=== PATIENT | female | born 1985 | race Caucasian/White ===

== ENCOUNTER 2016-09-11 22:34 | Emergency (ER) | payer OTHER ==
--- NOTE | 2016-09-11 23:53 | DIAGNOSTIC IMAGING REPORT ---
PROCEDURE: CT ABDOMEN/PELVIS W/O CONTRAST INDICATION: FLANK PAIN TECHNIQUE: Axial CT images were obtained through the abdomen and pelvis without IV contrast. Coronal and sagittal reformations were created. COMPARISON: None. FINDINGS: Three tiny nonobstructing intrarenal stones in the upper pole of the left kidney. The largest measures 3 mm. There are two obstructing calculi clumped together in the proximal left ureter causing moderate left hydronephrosis measuring four and 2.5 mm. Mild rosette ureteric inflammation. Clear lung bases. Normal size heart. No hiatal hernia. The unenhanced appearance of the liver, gallbladder, adrenal glands, kidneys, pancreas and spleen is normal. The abdominal aorta is normal in its course and caliber. There are no suspicious calcifications, retroperitoneal adenopathy or masses. The stomach, upper bowel loops, and mesentery appears normal. Intact anterior abdominal wall. No free fluid, or inflammation. The unenhanced appearance of the uterus, ovaries, urinary bladder, pelvic vessels, and pelvic bowel loops is normal. Normal appendix. No suspicious calcifications, free fluid, or mass. Intact osseous structures. IMPRESSION: 1. Two obstructing calculi, both in the proximal left ureter, the larger measuring 4 mm. This results in moderate left hydronephrosis. 2. Three nonobstructing left upper pole intrarenal calculi. 3. Findings called to the emergency room. All CT scans at this facility use dose modulation, iterative reconstruction, and/or weight-based dosing when appropriate to reduce radiation dose to as low as reasonably achievable.
--- NOTE | 2016-09-12 00:23 | ED CLINICAL REPORT ---
Clinical Report - Physicians/Mid Levels [facility] [address] [place] [address] 09/11/2016 22:36 Patient: SID SAAB Time Seen: 22:43; initial patient contact. Arrived- By private vehicle. Historian- patient. HISTORY OF PRESENT ILLNESS Chief Complaint: FLANK PAIN. This started last night and is still present. At its maximum, severity described as moderate. When seen in the E.D., severity described as moderate. Modifying factors. Not worsened by anything. Not relieved by anything. It is described as cramping and it is described as located in the left flank and radiating to the groin. The patient has had nausea. No loss of appetite, vomiting or diarrhea. Similar symptoms previously: Many times. Recent medical care: Not recently seen/assessed. REVIEW OF SYSTEMS No constipation, difficulty with urination, pain with urination or urinary frequency. All systems otherwise negative, except as recorded above. PAST HISTORY Nephrolithiasis. Thyroid Disease. Surgeries: No history of previous surgery. Additional Surgeries: no known surgeries. Medications: BuPROPion HCl ER (XL) Oral. Levothyronin . Levothyroxine Sodium Oral (Tablet 100 mcg) 1/2 tablet. Allergies: No Known Drug Allergy. SOCIAL HISTORY Current every day smoker. History of drug use: marijuana. No alcohol use. ADDITIONAL NOTES The nursing notes have been reviewed with agreement regarding the chief complaint, PMH and patient medications and allergies. PHYSICAL EXAM Vital Signs: 09/11/2016 22:40 BP: 127/61. HR: 90. RR: 20. O2 saturation: 100%. Temp: 98 F. Pain level now: 8/10. Have been reviewed as normal. Appearance: Alert. Oriented X3. No acute distress. Eyes: Eyes normal inspection. ENT: Pharynx normal. CVS: Normal heart rate and rhythm. Heart sounds normal. Respiratory: No respiratory distress. Breath sounds normal. Abdomen: Soft. Mild tenderness in the left side of the abdomen with guarding present. No rebound tenderness. Bowel sounds normal. No organomegaly. No mass. Back: Normal inspection. Moderate CVA tenderness on the left. Skin: Normal skin color. No rash. Extremities: No lower extremity edema. Neuro: Oriented X 3. LABS, X-RAYS, AND EKG Abdominal CT: 1. Two obstructing calculi, both in the proximal left ureter, the larger measuring 4 mm. This results in moderate left hydronephrosis. 2. Three nonobstructing left upper pole intrarenal calculi. Study type: renal stone evaluation. Abdominal CT performed without contrast. Prior studies were not available for comparison. Interpretation time: 00:22. Laboratory Tests: UA-Culture if indicated: (RICHARD: 09/11/2016 22:40) ( [facility] [place] 23:19) Final results Test Result Flag Units (Reference) URINE COLOR YELLOW URINE APPEARANCE CLEAR URINE GLUCOSE NEGATIVE (NEGATIVE) URINE BILIRUBIN NEGATIVE (NEGATIVE) URINE KETONE NEGATIVE (NEGATIVE) URINE SPECIFIC GRAVITY <= 1.005 L (1.010-1.030) URINE PH 6.0 (5.0-8.0) URINE PROTEIN NEGATIVE (NEGATIVE) URINE UROBILINOGEN 0.2 EU/dL (0.2-1.0) URINE NITRITE NEGATIVE (NEGATIVE) URINE BLOOD 3+ (NEGATIVE) URINE LEUK ESTERASE NEGATIVE (NEGATIVE) URINE RBC 25-50 rbc/hpf (0-1) URINE WBC 1-3 wbc/hpf (0-1) URINE EPITHELIAL CELLS 3-5 EPI/hpf (0-5) URINE BACTERIA NONE SEEN (NONE SEEN) URINE COMMENT CULT NOT INDICATED URINE CULTURES ARE SET-UP BASED ON THE FOLLOWING CRITERIA:POSITIVE NITRITEPOSITIVE LEUKOCYTE ESTERASEGREATER THAN 10 WHITE BLOOD CELLSMODERATE (2+) OR GREATER BACTERIA Urine: (RICHARD: 09/11/2016 23:06) ( [facility] [place] 23:11) Final results Test Result Flag Units (Reference) URINE NEGATIVE CBC w Diff: (RICHARD: 09/11/2016 22:45) ( [facility] [place] 23:26) Final results Test Result Flag Units (Reference) WHITE BLOOD COUNT 11.8 H K/uL (4.5-11.5) RED BLOOD COUNT 4.62 M/uL (4.00-5.20) HEMOGLOBIN 13.1 gm/dL (12.0-16.0) HEMATOCRIT 40.0 % (36.0-46.0) MEAN CELL VOLUME 86 fL (80-100) MEAN CORPUSCULAR HGB 28 pg (26-34) MEAN CORPUSCULAR HGB CONC 33 g/dL (31-37) RED CELL DISTRIBUTION WIDTH 14.5 % (11.6-14.8) PLATELET COUNT 302 K/uL (150-400) NEUTROPHIL % 72.1 % (50-75) LYMPH % 26.1 % (25-40) MONO % 1.8 L % (3-14) CMP: (RICHARD: 09/11/2016 22:45) ( MsgRcvd 09/11/2016 23:27) Final results Test Result Flag Units (Reference) GLUCOSE 87 mg/dL (70-110) BUN 13 mg/dL (7-18) CREATININE 1.1 mg/dL (0.6-1.3) Estimated GFR >60 mL/min Estimated GFR- >60 mL/min Note: Persistent reduction over 3 months in eGFR<60 mL/min/1.73 m2 defines CKD. Patients with eGFR values>=60 mL/min/1.73 m2 may also have CKD if evidence ofpersistent proteinuria. Additional information may be foundat [email or web address].org. SODIUM 139 mmol/L (136-145) POTASSIUM 3.6 mmol/L (3.5-5.1) CHLORIDE 102 mmol/L (98-107) CARBON DIOXIDE 26 mmol/L (21-32) CALCIUM 8.9 mg/dL (8.5-10.1) TOTAL PROTEIN 7.8 g/dL (6.4-8.2) ALBUMIN 3.6 g/dL (3.3-5.0) BILIRUBIN, TOTAL 0.2 mg/dL (0.0-1.0) ALKALINE PHOSPHATASE 65 U/L (46-116) AST (SGOT) 11 L U/L (15-37) ALT (SGPT) 20 U/L (12-78) . PROGRESS AND PROCEDURES Disposition: Discharged home in good and improved condition. Condition: good. CLINICAL IMPRESSION Ureterolithiasis (multiple stones) in the left ureter and kidney with renal colic and hydronephrosis. INSTRUCTIONS Your Current Medications: CONTINUE TAKING THE FOLLOWING MEDICATIONS: BuPROPion HCl ER (XL) Oral. Levothyronin *. Levothyroxine Sodium Oral : Tablet 100 mcg, 1/2 tablet. Prescription Medications: Hydrocodone/APAP 5mg / 325mg: take 1 orally every 6 hours as needed for pain. Dispense twenty (20). No refill. Zofran (orally disintegrating tablets) 4 mg: take 1 orally every 6 hours as needed for nausea and vomiting. Dispense ten (10). No refill. Substitution is permissible. Flomax 0.4 mg: take 1 orally every 24 hours. Take dose every day 30 minutes after the same meal. Dispense fifteen (15). No refills. Substitution is permissible. Follow-up: Follow up with your doctor in about two days. Call for an appointment. Screening today revealed the patient's blood pressure to be in the normal range. (Electronically signed by Conner Rowell Dr. 09/12/2016 1:35)
--- NOTE | 2016-09-12 00:23 | ED NURSING NOTES ---
Clinical Report - Nurses [facility] [address] [place] [address] 09/11/2016 22:36 [id number] Triage time 22:40 Sep 11 2016. Acuity: LEVEL 3. Chief Complaint: FLANK PAIN. 22:49 09/11/16. SEPSIS SCREEN: Sepsis Screen: negative. Negative (no infection suspected/documented). ELIAS COMA SCORE: [place] Coma Scale: 15- eyes open spontaneously (4); best verbal response- oriented x 4 (5); best motor response- obeys commands (6). --22:49 Melody Riley 22:40 09/11/16. BP: 127/61. HR: 90. RR: 20. O2 saturation: 100% on room air. Temp: 98 F (oral). Pain level now: 02/06. --22:49 Melody Riley. Weight: 133.8 kg stated. Height/Length: 62 inches Per Patient. BMI: 54. --22:47 Melody Riley. Medications Levothyroxine Sodium Oral (Tablet 100 mcg) 1/2 tablet. --22:44 Melody Riley Levothyronin . --22:44 Melody Riley BuPROPion HCl ER (XL) Oral. --22:45 Melody Riley. Medication/allergy information source: the patient. --22:49 Melody Riley. Allergies No Known Drug Allergy. --22:46 Melody Riley. History Arrived by private vehicle. Historian: patient. Accompanied by friend and (Significant others). Primary physician (Chiqui Simpson). Onset. (2 days). ( Patient reports a history of Kidney stones. She has had abdominal pain and flank pain for two days. She reports hydrating and waiting for the "stone" to pass but her pain has persisted. She reports darker urine than normal.). PAST MEDICAL HX: Immunizations: up-to-date. Last normal menstrual period- 2 weeks ago. SOCIAL HX: Light tobacco smoker (cigarette)- less than 1/2 a pack per day. History of drug use: marijuana. No alcohol use. No infectious disease exposure. ABUSE ASSESSMENT: No report of abuse. FALL RISK ASSESSMENT: Fall risk assessment completed. No fall risk identified. NUTRITIONAL RISK ASSESSMENT: The nutritional risk assessment revealed no deficiencies. FUNCTIONAL ASSESSMENT: Functional assessment: no impairments noted. LEARNING NEEDS ASSESSMENT: The learning needs assessment revealed no barriers. SKIN INTEGRITY ASSESSMENT: Skin integrity risk assessment completed. No skin integrity risk identified. --22:49 Melody Riley. PROBLEMS: Nephrolithiasis. Thyroid Disease. --22:46 Melody Riley. ADDITIONAL SURGERIES: no known surgeries. Interventions ID band on patient. To treatment room. --22:49 Melody Riley. PHYSICAL ASSESSMENT GENERAL / NEURO / PSYCH: Alert. Oriented X 4. Appears in no acute distress. HEENT: Mucous membranes are pink. RESPIRATORY: Respirations not labored. CVS: Normal sinus rhythm noted. GI / : Abdomen soft. Abdominal tenderness in the left lower quadrant. SKIN: Skin is warm and dry. --22:49 Melody Riley Patient gowned. --22:49 Melody Riley. NURSING PROGRESS NOTES Pulse oximeter and NIBP monitor placed on patient; monitor alarms on. Patient gowned. Head of bed elevated. Warming measures: blanket applied. Reassurance given to the patient. Two patient identifiers checked. Call light placed in reach. Side rails up x 1. Bed placed in lowest position. Brakes of bed on. Patient ready for evaluation- chart flagged and ED physician notified. --22:49 Melody Riley 22:55 09/11/2016 Site #1 started via IV in the right antecubital space with an 20g angiocath, with aseptic technique and good blood return; one attempt. Blood drawn: rainbow set. Labeled in the presence of the patient and sent to the lab. Saline lock flushed with 10 mL saline. --22:55 Melody Riley 23:06 09/11/2016 Morphine IVP 4 mg given over 1 minute(s) via site #1. Allergies verified, confirmed 5 rights and sedative warning given to the patient. IV patency established. IV site checked: no pain, redness, or swelling. IV flushed thoroughly pre- and post-medication administration. IVP given by RN. --23:16 Melody Riley 23:06 09/11/2016 Zofran (Ondansetron HCl) IVP 4 mg given over 1 minute(s) via site #1. Allergies verified and confirmed 5 rights. IV patency established. IV site checked: no pain, redness, or swelling. IV flushed thoroughly pre- and post-medication administration. IVP given by RN. --23:16 Melody Riley 23:10 09/11/2016 Started bag #1 1000 mL IV Fluids IV NS (Saline); at 1000 mL/hr over 1 hour(s) via site #1. Allergies verified and confirmed 5 rights. IV patency established. IV site checked: no pain, redness, or swelling. IV flushed thoroughly pre- and post-medication administration. --23:15 Melody Riley Patient transported to [place] by stretcher with tech. (23:26 Sep 11 2016). --23:26 Melody Riley 23:50 09/11/2016 Flomax (Tamsulosin HCl) PO Tablets 0.4 mg given. Allergies verified and confirmed 5 rights. --23:50 Melody Riley 23:50 09/11/2016 Morphine IVP 4 mg given over 1 minute(s) via site #1. Allergies verified, confirmed 5 rights and sedative warning given to the patient. IV patency established. IV site checked: no pain, redness, or swelling. IV flushed thoroughly pre- and post-medication administration. IVP given by RN. --23:50 Melody Riley 23:50 09/11/16. BP: 100/65. HR: 77. RR: 20. O2 saturation: 100% on room air. Pain level now: 08/09. --23:51 Melody Riley Reassessment after medication administered. Overall patient status- she states feels better. --23:51 Melody Riley 00:12 09/12/2016 IV Fluids IV NS Discontinued: bag #1. Total amount infused: 1000 mL. IV patency established. IV site checked: no pain, redness, or swelling. IV flushed thoroughly. --00:12 Melody Riley. DISPOSITION / DISCHARGE 00:34 09/12/16. BP: 110/68. HR: 80. RR: 20. O2 saturation: 97% on room air. Temp: 98 F (oral). Pain level now: 09/06. --00:36 Melody Riley 00:26 09/12/2016 Site #1 removed upon discharge. Catheter intact. Bandaid applied. --00:36 Melody Riley 00:36 09/12/16. Condition at departure: stable. The goals identified in the patient's plan of care were met. No learning barriers present. Discharge instructions provided and reviewed with the patient. Reviewed warnings (Do not drive while on sedative medications). Reviewed medication(s) side effects, precautions, dosing and course information. Prescription(s) given to the patient. Reviewed need for increased fluid intake. Patient verbalized understanding. Written instructions provided in Occitan. ( Follow up with your PCP in three days. Return if symptoms worsen. Increase fluids to aid in the passage of your stone. Reviewed beverage choices that are appropriate for hydration.). The patient was discharged by the physician. She was discharged home and accompanied by spouse. She left the Emergency Department ambulatory and via private vehicle. Spouse driving. FALL RISK ASSESSMENT: Fall risk assessment completed. No fall risk identified. --00:36 Melody Riley. Locked/Released at 09/12/2016 1:20 by Melody Riley,
--- NOTE | 2016-09-12 00:23 | ED ORDER SUMMARY ---
..... Patient: SID SAAB OrderSheet [facility] VisitID: [id number] [address] [place] [address] 31y, F Registration Date/Time: 09/11/2016 ORDER SHEET Weight: 133.8 kg (stated) Allergies: No Known Drug Allergy GENERAL ORDERS: UA-Culture if indicated Urgent (22:55 09/11/2016 HSoule per protocol) (Ack 23:06 SRedmond) (23:26 HSoule) CBC w Diff Urgent (23:00 09/11/2016 Sameer Chase) (Ack 23:06 SRedmond) (23:26 HSoule) CMP Urgent (23:00 09/11/2016 Sameer Chase) (Ack 23:06 SRedmond) (23:26 HSoule) Urine Urgent (23:00 09/11/2016 Sameer Chase) (Ack 23:06 SRedmond) (23:26 HSoule) CT Abd/Pel wo Cont (Left side) Urgent (23:16 09/11/2016 Sameer Chase) (23:26 HSoule) (Ack 23:27 SRedmond) MEDICATION ORDERS: Flomax PO 0.4 mg (Do not crush or chew, NOW) (23:41 09/11/2016 Sameer Chase) (Ack 23:42 HSoule) (23:50 HSoule) IV FLUIDS: IV NS : initial bolus none -, then 1000 mL/hr for X1 (NOW) (23:00 09/11/2016 Sameer Chase) (Ack 23:03 HSoule) (23:15 HSoule) Morphine IV 4 mg (HIGH ALERT MEDICATION, NOW) (23:03 09/11/2016 Sameer Chase) (23:16 HSoule) Zofran IV 4 mg (NOW) (23:04 09/11/2016 Sameer Chase) (23:16 HSoule) Morphine IV 4 mg (HIGH ALERT MEDICATION, NOW) (23:41 09/11/2016 Sameer Chase) (Ack 23:42 HSoule) (23:50 HSoule) ORDER SHEET NOTES: [Electronically signed by Melody Riley (09/12/2016)] [Electronically signed by Conner Rowell Dr. (:35 09/12/2016)] [Electronically locked/signed by Melody Riley (09/12/2016)]
--- NOTE | 2016-09-12 00:23 | ED CLINICAL REPORT ---
Clinical Report - Physicians/Mid Levels [facility] [address] [place] [address] 09/11/2016 22:36 Patient: SID SAAB Time Seen: 22:43; initial patient contact. Arrived- By private vehicle. Historian- patient. HISTORY OF PRESENT ILLNESS Chief Complaint: FLANK PAIN. This started last night and is still present. At its maximum, severity described as moderate. When seen in the E.D., severity described as moderate. Modifying factors. Not worsened by anything. Not relieved by anything. It is described as cramping and it is described as located in the left flank and radiating to the groin. The patient has had nausea. No loss of appetite, vomiting or diarrhea. Similar symptoms previously: Many times. Recent medical care: Not recently seen/assessed. REVIEW OF SYSTEMS No constipation, difficulty with urination, pain with urination or urinary frequency. All systems otherwise negative, except as recorded above. PAST HISTORY Nephrolithiasis. Thyroid Disease. Surgeries: No history of previous surgery. Additional Surgeries: no known surgeries. Medications: BuPROPion HCl ER (XL) Oral. Levothyronin . Levothyroxine Sodium Oral (Tablet 100 mcg) 1/2 tablet. Allergies: No Known Drug Allergy. SOCIAL HISTORY Current every day smoker. History of drug use: marijuana. No alcohol use. ADDITIONAL NOTES The nursing notes have been reviewed with agreement regarding the chief complaint, PMH and patient medications and allergies. PHYSICAL EXAM Vital Signs: 09/11/2016 22:40 BP: 127/61. HR: 90. RR: 20. O2 saturation: 100%. Temp: 98 F. Pain level now: 8/10. Have been reviewed as normal. Appearance: Alert. Oriented X3. No acute distress. Eyes: Eyes normal inspection. ENT: Pharynx normal. CVS: Normal heart rate and rhythm. Heart sounds normal. Respiratory: No respiratory distress. Breath sounds normal. Abdomen: Soft. Mild tenderness in the left side of the abdomen with guarding present. No rebound tenderness. Bowel sounds normal. No organomegaly. No mass. Back: Normal inspection. Moderate CVA tenderness on the left. Skin: Normal skin color. No rash. Extremities: No lower extremity edema. Neuro: Oriented X 3. LABS, X-RAYS, AND EKG Abdominal CT: 1. Two obstructing calculi, both in the proximal left ureter, the larger measuring 4 mm. This results in moderate left hydronephrosis. 2. Three nonobstructing left upper pole intrarenal calculi. Study type: renal stone evaluation. Abdominal CT performed without contrast. Prior studies were not available for comparison. Interpretation time: 00:22. Laboratory Tests: UA-Culture if indicated: (RICHARD: 09/11/2016 22:40) ( [facility] [place] 09/11/2016 23:19) Final results Test Result Flag Units (Reference) URINE COLOR YELLOW URINE APPEARANCE CLEAR URINE GLUCOSE NEGATIVE (NEGATIVE) URINE BILIRUBIN NEGATIVE (NEGATIVE) URINE KETONE NEGATIVE (NEGATIVE) URINE SPECIFIC GRAVITY <= 1.005 L (1.010-1.030) URINE PH 6.0 (5.0-8.0) URINE PROTEIN NEGATIVE (NEGATIVE) URINE UROBILINOGEN 0.2 EU/dL (0.2-1.0) URINE NITRITE NEGATIVE (NEGATIVE) URINE BLOOD 3+ (NEGATIVE) URINE LEUK ESTERASE NEGATIVE (NEGATIVE) URINE RBC 25-50 rbc/hpf (0-1) URINE WBC 1-3 wbc/hpf (0-1) URINE EPITHELIAL CELLS 3-5 EPI/hpf (0-5) URINE BACTERIA NONE SEEN (NONE SEEN) URINE COMMENT CULT NOT INDICATED URINE CULTURES ARE SET-UP BASED ON THE FOLLOWING CRITERIA:POSITIVE NITRITEPOSITIVE LEUKOCYTE ESTERASEGREATER THAN 10 WHITE BLOOD CELLSMODERATE (2+) OR GREATER BACTERIA Urine: (RICHARD: 09/11/2016 23:06) ( [facility] [place] 09/11/2016 23:11) Final results Test Result Flag Units (Reference) URINE NEGATIVE CBC w Diff: (RICHARD: 09/11/2016 22:45) ( [facility] [place] 23:26) Final results Test Result Flag Units (Reference) WHITE BLOOD COUNT 11.8 H K/uL (4.5-11.5) RED BLOOD COUNT 4.62 M/uL (4.00-5.20) HEMOGLOBIN 13.1 gm/dL (12.0-16.0) HEMATOCRIT 40.0 % (36.0-46.0) MEAN CELL VOLUME 86 fL (80-100) MEAN CORPUSCULAR HGB 28 pg (26-34) MEAN CORPUSCULAR HGB CONC 33 g/dL (31-37) RED CELL DISTRIBUTION WIDTH 14.5 % (11.6-14.8) PLATELET COUNT 302 K/uL (150-400) NEUTROPHIL % 72.1 % (50-75) LYMPH % 26.1 % (25-40) MONO % 1.8 L % (3-14) CMP: (RICHARD: 09/11/2016 22:45) ( MsgRcvd 09/11/2016 23:27) Final results Test Result Flag Units (Reference) GLUCOSE 87 mg/dL (70-110) BUN 13 mg/dL (7-18) CREATININE 1.1 mg/dL (0.6-1.3) Estimated GFR >60 mL/min Estimated GFR- >60 mL/min Note: Persistent reduction over 3 months in eGFR<60 mL/min/1.73 m2 defines CKD. Patients with eGFR values>=60 mL/min/1.73 m2 may also have CKD if evidence ofpersistent proteinuria. Additional information may be foundat [email or web address].org. SODIUM 139 mmol/L (136-145) POTASSIUM 3.6 mmol/L (3.5-5.1) CHLORIDE 102 mmol/L (98-107) CARBON DIOXIDE 26 mmol/L (21-32) CALCIUM 8.9 mg/dL (8.5-10.1) TOTAL PROTEIN 7.8 g/dL (6.4-8.2) ALBUMIN 3.6 g/dL (3.3-5.0) BILIRUBIN, TOTAL 0.2 mg/dL (0.0-1.0) ALKALINE PHOSPHATASE 65 U/L (46-116) AST (SGOT) 11 L U/L (15-37) ALT (SGPT) 20 U/L (12-78) . PROGRESS AND PROCEDURES Disposition: Discharged home in good and improved condition. Condition: good. CLINICAL IMPRESSION Ureterolithiasis (multiple stones) in the left ureter and kidney with renal colic and hydronephrosis. INSTRUCTIONS Your Current Medications: CONTINUE TAKING THE FOLLOWING MEDICATIONS: BuPROPion HCl ER (XL) Oral. Levothyronin *. Levothyroxine Sodium Oral : Tablet 100 mcg, 1/2 tablet. Prescription Medications: Hydrocodone/APAP 5mg / 325mg: take 1 orally every 6 hours as needed for pain. Dispense twenty (20). No refill. Zofran (orally disintegrating tablets) 4 mg: take 1 orally every 6 hours as needed for nausea and vomiting. Dispense ten (10). No refill. Substitution is permissible. Flomax 0.4 mg: take 1 orally every 24 hours. Take dose every day 30 minutes after the same meal. Dispense fifteen (15). No refills. Substitution is permissible. Follow-up: Follow up with your doctor in about two days. Call for an appointment. Screening today revealed the patient's blood pressure to be in the normal range. (Electronically signed by Conner Rowell Dr. 09/12/2016 1:35)
--- NOTE | 2016-09-12 00:23 | ED ORDER SUMMARY ---
..... Patient: SID SAAB OrderSheet [facility] VisitID: [id number] [address] [place] [address] 31y, F Registration Date/Time: 09/11/2016 ORDER SHEET Weight: 133.8 kg (stated) Allergies: No Known Drug Allergy GENERAL ORDERS: UA-Culture if indicated Urgent (22:55 09/11/2016 HSoule per protocol) (Ack 23:06 SRedmond) (23:26 HSoule) CBC w Diff Urgent (23:00 09/11/2016 Sameer Chase) (Ack 23:06 SRedmond) (23:26 HSoule) CMP Urgent (23:00 09/11/2016 Sameer Chase) (Ack 23:06 SRedmond) (23:26 HSoule) Urine Urgent (23:00 09/11/2016 Sameer Chase) (Ack 23:06 SRedmond) (23:26 HSoule) CT Abd/Pel wo Cont (Left side) Urgent (23:16 09/11/2016 Sameer Chase) (23:26 HSoule) (Ack 23:27 SRedmond) MEDICATION ORDERS: Flomax PO 0.4 mg (Do not crush or chew, NOW) (23:41 09/11/2016 Sameer Chase) (Ack 23:42 HSoule) (23:50 HSoule) IV FLUIDS: IV NS : initial bolus none -, then 1000 mL/hr for X1 (NOW) (23:00 09/11/2016 Sameer Chase) (Ack 23:03 HSoule) (23:15 HSoule) Morphine IV 4 mg (HIGH ALERT MEDICATION, NOW) (23:03 09/11/2016 Sameer Chase) (23:16 HSoule) Zofran IV 4 mg (NOW) (23:04 09/11/2016 Sameer Chase) (23:16 HSoule) Morphine IV 4 mg (HIGH ALERT MEDICATION, NOW) (23:41 09/11/2016 Sameer Chase) (Ack 23:42 HSoule) (23:50 HSoule) ORDER SHEET NOTES: [Electronically signed by Melody Riley (09/12/2016)] [Electronically signed by Conner Rowell Dr. (:35 09/12/2016)] [Electronically locked/signed by Melody Riley (09/12/2016)]
--- NOTE | 2016-09-12 01:35 | ED DISCHARGE INSTRUCTIONS ---
Patient: SID SAAB General Instructions [facility] VisitID: [id number] [address] [place] [address] 31y, F Registration Date/Time: 09/11/2016 Ureterolithiasis (multiple stones) in the left ureter and kidney with renal colic and hydronephrosis. INSTRUCTIONS Your Current Medications: CONTINUE TAKING THE FOLLOWING MEDICATIONS: BuPROPion HCl ER (XL) Oral. Levothyronin *. Levothyroxine Sodium Oral : Tablet 100 mcg, 1/2 tablet. Prescription Medications: Hydrocodone/APAP 5mg / 325mg: take 1 orally every 6 hours as needed for pain. Dispense twenty (20). No refill. Zofran (orally disintegrating tablets) 4 mg: take 1 orally every 6 hours as needed for nausea and vomiting. Dispense ten (10). No refill. Substitution is permissible. Flomax 0.4 mg: take 1 orally every 24 hours. Take dose every day 30 minutes after the same meal. Dispense fifteen (15). No refills. Substitution is permissible. Follow-up: Follow up with your doctor in about two days. Call for an appointment. Screening today revealed the patient's blood pressure to be in the normal range. ADDITIONAL INFORMATION Kidney Stone (W/ Colic) The sharp cramping pain and nausea/vomiting that you have is due to a small stone which has formed in the kidney and is now passing down a narrow tube (ureter) on its way to your bladder. Once it reaches your bladder, the pain will stop. The stone may pass in your urine stream in one piece. [The size may be 1/16" to 1/4" (1-6mm)]. Or, the stone may also break up into ricardo fragments which you may not even notice. Once you have had a kidney stone, you are at risk for developing another one in the future. Home Care: Drink plenty of fluids (at least 8 to 10 glasses of water a day). Most stones will pass on their own, but may take from a few hours to a few days. Sometimes the stone is too large to pass by itself and special methods will have to be used to remove the stone. Each time you urinate, do so in a jar. Pour the urine from the jar through the strainer and into the toilet. Continue doing this until 24 hours after your pain stops. By then, if there was a kidney stone, it should pass from your bladder. Some stones dissolve into sand-like particles and pass right through the strainer. In that case, you wont ever see a stone. Save any stone that you find in the strainer and bring it to your doctor for analysis. It may be possible to prevent certain types of stones from forming. Therefore, it is important to know what kind of stone you have. Try to stay as active as possible since this will help the stone pass. Do not stay in bed unless your pain prevents you from getting up. You may notice a red, pink or brown color to your urine. This is normal while passing a kidney stone. Follow Up with your doctor or return to this facility if the pain lasts more than 48 hours. Get Prompt Medical Attention if any of the following occur: Pain that is not controlled by the medicine given Repeated vomiting or unable to keep down fluids Weakness, dizziness or fainting Fever of 100.4F (38C) or higher, or as directed by your healthcare provider Passage of solid red or brown urine (can't see through it) or urine with lots of blood clots Unable to pass urine for 8 hours and increasing bladder pressure Hydrocodone Bitartrate, Acetaminophen Oral tablet What is this medicine? ACETAMINOPHEN; HYDROCODONE (a set a PAPA jean carlos fen; kacey droe KOE done) is a pain reliever. It is used to treat mild to moderate pain. How should I use this medicine? Take this medicine by mouth. Swallow it with a full glass of water. Follow the directions on the prescription label. If the medicine upsets your stomach, take the medicine with food or milk. Do not take more than you are told to take. Talk to your auger operator regarding the use of this medicine in children. This medicine is not approved for use in children. What side effects may I notice from receiving this medicine? Side effects that you should report to your doctor or health career guidance counselor as soon as possible: allergic reactions like skin rash, itching or hives, swelling of the face, lips, or tongue breathing problems confusion feeling faint or lightheaded, falls stomach pain yellowing of the eyes or skin Side effects that usually do not require medical attention (report to your doctor or health career guidance counselor if they continue or are bothersome): nausea, vomiting stomach upset What may interact with this medicine? alcohol antihistamines isoniazid medicines for depression, anxiety, or psychotic disturbances medicines for sleep muscle relaxants naltrexone narcotic medicines (opiates) for pain phenobarbital ritonavir tramadol What if I miss a dose? If you miss a dose, take it as soon as you can. If it is almost time for your next dose, take only that dose. Do not take double or extra doses. Where should I keep my medicine? Keep out of the reach of children. This medicine can be abused. Keep your medicine in a safe place to protect it from theft. Do not share this medicine with anyone. Selling or giving away this medicine is dangerous and against the law. Store at room temperature between 15 and 30 degrees C (59 and 86 degrees F). Protect from light. Keep container tightly closed. Throw away any unused medicine after the expiration date. Discard unused medicine and used packaging carefully. Pets and children can be harmed if they find used or lost packages. What should I tell my health care provider before I take this medicine? They need to know if you have any of these conditions: brain tumor Crohn's disease, inflammatory bowel disease, or ulcerative colitis drink more than 3 alcohol-containing drinks per day drug abuse or addiction head injury heart or circulation problems kidney disease or problems going to the bathroom liver disease lung disease, asthma, or breathing problems an unusual or allergic reaction to acetaminophen, hydrocodone, other opioid analgesics, other medicines, foods, dyes, or preservatives or trying to get breast-feeding What should I watch for while using this medicine? Tell your doctor or health career guidance counselor if your pain does not go away, if it gets worse, or if you have new or a different type of pain. You may develop tolerance to the medicine. Tolerance means that you will need a higher dose of the medicine for pain relief. Tolerance is normal and is expected if you take the medicine for a long time. Do not suddenly stop taking your medicine because you may develop a severe reaction. Your body becomes used to the medicine. This does NOT mean you are addicted. Addiction is a behavior related to getting and using a drug for a non-medical reason. If you have pain, you have a medical reason to take pain medicine. Your doctor will tell you how much medicine to take. If your doctor wants you to stop the medicine, the dose will be slowly lowered over time to avoid any side effects. You may get drowsy or dizzy when you first start taking the medicine or change doses. Do not drive, use machinery, or do anything that may be dangerous until you know how the medicine affects you. Stand or sit up slowly. There are different types of narcotic medicines (opiates) for pain. If you take more than one type at the same time, you may have more side effects. Give your health care provider a list of all medicines you use. Your doctor will tell you how much medicine to take. Do not take more medicine than directed. Call emergency for help if you have problems breathing. The medicine will cause constipation. Try to have a bowel movement at least every 2 to 3 days. If you do not have a bowel movement for 3 days, call your doctor or health career guidance counselor. Too much acetaminophen can be very dangerous. Do not take Tylenol (acetaminophen) or medicines that contain acetaminophen with this medicine. Many non-prescription medicines contain acetaminophen. Always read the labels carefully. Ondansetron Oral disintegrating tablet What is this medicine? ONDANSETRON (on CARLOS se wojciech) is used to treat nausea and vomiting caused by chemotherapy. It is also used to prevent or treat nausea and vomiting after surgery. How should I use this medicine? These tablets are made to dissolve in the mouth. Do not try to push the tablet through the foil backing. With dry hands, peel away the foil backing and gently remove the tablet. Place the tablet in the mouth and allow it to dissolve, then swallow. While you may take these tablets with water, it is not necessary to do so. Talk to your auger operator regarding the use of this medicine in children. Special care may be needed. What side effects may I notice from receiving this medicine? Side effects that you should report to your doctor or health career guidance counselor as soon as possible: allergic reactions like skin rash, itching or hives, swelling of the face, lips, or tongue breathing problems dizziness fast or irregular heartbeat feeling faint or lightheaded, falls fever and chills swelling of the hands and feet tightness in the chest Side effects that usually do not require medical attention (report to your doctor or health career guidance counselor if they continue or are bothersome): constipation or diarrhea headache What may interact with this medicine? Do not take this medicine with any of the following medications: -apomorphine -cisapride -dofetilide -dronedarone -pimozide -thioridazine -ziprasidone This medicine may also interact with the following medications: -carbamazepine -phenytoin -rifampicin -tramadol -other medicines that prolong the QT interval (cause an abnormal heart rhythm) What if I miss a dose? If you miss a dose, take it as soon as you can. If it is almost time for your next dose, take only that dose. Do not take double or extra doses. Where should I keep my medicine? Keep out of the reach of children. Store between 2 and 30 degrees C (36 and 86 degrees F). Throw away any unused medicine after the expiration date. What should I tell my health care provider before I take this medicine? They need to know if you have any of these conditions: heart disease history of irregular heartbeat liver disease low levels of magnesium or potassium in the blood an unusual or allergic reaction to ondansetron, granisetron, other medicines, foods, dyes, or preservatives or trying to get breast-feeding What should I watch for while using this medicine? Check with your doctor or health career guidance counselor as soon as you can if you have any sign of an allergic reaction. You have been given the following additional information: Kidney Stone W/ Colic Hydrocodone Bitartrate, Acetaminophen Oral tablet Ondansetron Oral disintegrating tablet (Electronically signed by Conner Rowell Dr. 09/12/2016 1:35)
--- NOTE | 2016-09-12 01:35 | ED MED RECONCILIATION SUMMARY ---
Patient: SID SAAB Medication Reconciliation Report [facility] VisitID: [id number] [address] [place] [address] 31y, F Registration Date/Time: 09/11/2016 Weight: 133.8 kg Height/Length: 62 in. BMI: 54.0 ALLERGIES: No Known Drug Allergy The patient's Home Medications are listed below: CONTINUE TAKING THE FOLLOWING MEDICATIONS: BuPROPion HCl ER (XL) Oral Levothyronin Levothyroxine Sodium Oral (100 mcg) 1/2 tablet The source(s) of the original Home Medication information: patient The following Medications were given to the patient in the Emergency Department: IV NS IV Fluids bolus 0, then 1000 mL/hr, administered: 09/11/2016 11:10:00 PM Morphine [IVP] IVP 4 mg, administered: 09/11/2016 11:06:00 PM Zofran [IVP] IVP 4 mg, administered: 09/11/2016 11:06:00 PM Flomax [PO] PO 0.4 mg, administered: 09/11/2016 11:50:00 PM Morphine [IVP] IVP 4 mg, administered: 09/11/2016 11:50:00 PM The following Medications were prescribed to the patient: Hydrocodone/APAP 5mg / 325mg: take 1 orally every 6 hours as needed for pain. Dispense twenty (20). No refill. -- Conner Rowell Dr. Zofran (orally disintegrating tablets) 4 mg: take 1 orally every 6 hours as needed for nausea and vomiting. Dispense ten (10). No refill. Substitution is permissible. -- Conner Rowell Dr. Flomax 0.4 mg: take 1 orally every 24 hours. Take dose every day 30 minutes after the same meal. Dispense fifteen (15). No refills. Substitution is permissible. -- Conner Rowell Dr.
--- NOTE | 2016-09-12 01:35 | ED MAR SUMMARY ---
..... Medication Administration Record [facility] [address] [place] [address] Patient: SID SAAB Visit ID: [id number] 31y, F Weight: 133.8 kg Height/Length: 62 in BMI: 54 ALLERGIES: No Known Drug Allergy Given 23:06 09/11/2016 Melody Riley, Medication Administered: MORPHINE [IVP], Dose: 4 mg IVP over 1 minute(s), Site: #1 right AC. Medication Ordered: Morphine IV 4 mg (HIGH ALERT MEDICATION, NOW). Given 23:06 09/11/2016 Melody Riley, Medication Administered: ZOFRAN [IVP] (ONDANSETRON HCL), Dose: 4 mg IVP over 1 minute(s), Site: #1 right AC. Medication Ordered: Zofran IV 4 mg (NOW). Start 23:10 09/11/2016 Melody Riley,, Stop 00:12 09/12/2016 Melody Riley, Medication Administered: IV NS (SALINE), Dose: IV Fluids over 1 hour(s), Rate: 1000 mL/hr, Dispensed: 1000 mL bag, Site: #1 right AC. Medication Ordered: IV NS : initial bolus none -, then 1000 mL/hr for X1 (NOW). Given 23:50 09/11/2016 Melody Riley, Medication Administered: FLOMAX [PO] (TAMSULOSIN HCL), Dose: 0.4 mg Tablets PO. Medication Ordered: Flomax PO 0.4 mg (Do not crush or chew, NOW). Given 23:50 09/11/2016 Melody Riley, Medication Administered: MORPHINE [IVP], Dose: 4 mg IVP over 1 minute(s), Site: #1 right AC. Medication Ordered: Morphine IV 4 mg (HIGH ALERT MEDICATION, NOW).
--- NOTE | 2016-09-12 01:35 | ED MAR SUMMARY ---
..... Medication Administration Record [facility] [address] [place] [address] Patient: SID SAAB Visit ID: [id number] 31y, F Weight: 133.8 kg Height/Length: 62 in BMI: 54 ALLERGIES: No Known Drug Allergy Given 23:06 09/11/2016 Melody Riley, Medication Administered: MORPHINE [IVP], Dose: 4 mg IVP over 1 minute(s), Site: #1 right AC. Medication Ordered: Morphine IV 4 mg (HIGH ALERT MEDICATION, NOW). Given 23:06 09/11/2016 Melody Riley, Medication Administered: ZOFRAN [IVP] (ONDANSETRON HCL), Dose: 4 mg IVP over 1 minute(s), Site: #1 right AC. Medication Ordered: Zofran IV 4 mg (NOW). Start 23:10 09/11/2016 Melody Riley,, Stop 00:12 09/12/2016 Melody Riley, Medication Administered: IV NS (SALINE), Dose: IV Fluids over 1 hour(s), Rate: 1000 mL/hr, Dispensed: 1000 mL bag, Site: #1 right AC. Medication Ordered: IV NS : initial bolus none -, then 1000 mL/hr for X1 (NOW). Given 23:50 09/11/2016 Melody Riley, Medication Administered: FLOMAX [PO] (TAMSULOSIN HCL), Dose: 0.4 mg Tablets PO. Medication Ordered: Flomax PO 0.4 mg (Do not crush or chew, NOW). Given 23:50 09/11/2016 Melody Riley, Medication Administered: MORPHINE [IVP], Dose: 4 mg IVP over 1 minute(s), Site: #1 right AC. Medication Ordered: Morphine IV 4 mg (HIGH ALERT MEDICATION, NOW).
--- NOTE | 2016-09-12 01:35 | ED MED RECONCILIATION SUMMARY ---
Patient: SID SAAB Medication Reconciliation Report [facility] VisitID: [id number] [address] [place] [address] 31y, F Registration Date/Time: 09/11/2016 Weight: 133.8 kg Height/Length: 62 in. BMI: 54.0 ALLERGIES: No Known Drug Allergy The patient's Home Medications are listed below: CONTINUE TAKING THE FOLLOWING MEDICATIONS: BuPROPion HCl ER (XL) Oral Levothyronin Levothyroxine Sodium Oral (100 mcg) 1/2 tablet The source(s) of the original Home Medication information: patient The following Medications were given to the patient in the Emergency Department: IV NS IV Fluids bolus 0, then 1000 mL/hr, administered: 09/11/2016 11:10:00 PM Morphine [IVP] IVP 4 mg, administered: 09/11/2016 11:06:00 PM Zofran [IVP] IVP 4 mg, administered: 09/11/2016 11:06:00 PM Flomax [PO] PO 0.4 mg, administered: 09/11/2016 11:50:00 PM Morphine [IVP] IVP 4 mg, administered: 09/11/2016 11:50:00 PM The following Medications were prescribed to the patient: Hydrocodone/APAP 5mg / 325mg: take 1 orally every 6 hours as needed for pain. Dispense twenty (20). No refill. -- Conner Rowell Dr. Zofran (orally disintegrating tablets) 4 mg: take 1 orally every 6 hours as needed for nausea and vomiting. Dispense ten (10). No refill. Substitution is permissible. -- Conner Rowell Dr. Flomax 0.4 mg: take 1 orally every 24 hours. Take dose every day 30 minutes after the same meal. Dispense fifteen (15). No refills. Substitution is permissible. -- Conner Rowell Dr.
== END 2016-09-12 00:35 ==
LOC: ED SRH 22:34
DX: N13.2 Hydronephrosis with renal and ureteral calculous obstruction (principal); F17.210 Nicotine dependence, cigarettes, uncomplicated; Z79.899 Other long term (current) drug therapy
CPT/HCPCS: 90004; 90100; 93070; 95059

== ENCOUNTER 2016-09-16 11:45 | Emergency (ER) | payer OTHER ==
--- NOTE | 2016-09-16 15:37 | ED ORDER SUMMARY ---
..... Patient: SID SAAB OrderSheet [facility] VisitID: [id number] [place] [address] 31y, F Registration Date/Time: 09/16/2016 ORDER SHEET Weight: 133.8 kg (stated) Allergies: No Known Drug Allergy GENERAL ORDERS: UA-Culture if indicated Urgent (12:09/16/2016 Marilyn Chase) (Ack 12:09 LNations ER Tech1) CMP Urgent (12:09/16/2016 Marilyn Chase) (Ack 12:09 LNations ER Tech1) CBC w Diff Urgent (12:09/16/2016 Marilyn Chase) (Ack 12:10 LNations ER Tech1) Lipase Urgent (12:09/16/2016 Marilyn Chase) (Ack 12:10 LNations ER Tech1) Serum Quantitative Urgent (12:09/16/2016 Marilyn Chase) (Ack 12:10 LNations ER Tech1) Pulse oximeter (12:09/16/2016 Marilyn Chase) (Ack 12:09 LNations ER Tech1) (12:27 SSambou R.N.) MEDICATION ORDERS: IV FLUIDS: IV NS : initial bolus 1000 mL (1000 mL/hr), then none - for X1 (NOW) (12:08 09/16/2016 Marilyn Chase) (12:26 SSambou R.N.) Toradol IV 30 mg (NOW) (13:09/16/2016 Marilyn Chase) (13:26 SSambou R.N.) Morphine IV 8 mg (HIGH ALERT MEDICATION, NOW) (13:11 09/16/2016 Marilyn Chase) (13:26 SSambou R.N.) IV NS : initial bolus 1000 mL (1000 mL/hr), then none - for X1 (NOW) (13:12 09/16/2016 Marilyn Chase) (13:30 Yangmbou R.N.) Morphine IV 4 mg (HIGH ALERT MEDICATION, NOW) (15:07 09/16/2016 Marilyn Chase) (15:29 SSambou R.N.) ORDER SHEET NOTES: [Electronically signed by Sheriff Wendy Esatman (16:09/16/2016)] [Electronically signed by Keyshawn Vasquez Dr. (08:51 09/22/2016)] [Electronically locked/signed by Sheriff Wendy Eastman (:09/16/2016)]
--- NOTE | 2016-09-16 15:37 | ED NURSING NOTES ---
Clinical Report - Nurses [facility] [address] [place] [address] 09/16/2016 11:46 Patient: SID SAAB TRIAGE Acuity: LEVEL 3. Chief Complaint: ABDOMINAL PAIN and NAUSEA. --12:05 Sheriff Eastman R.N. 11:58 09/16/16. BP: 140/64. HR: 82. RR: 18. O2 saturation: 98%. Temp: 97.7 F. Pain level now: 02/06. --12:05 Sheriff Eastman R.N. 11:58 09/16/16. BP: 140/64. HR: 82. RR: 18. O2 saturation: 98%. Temp: 97.7 F. Pain level now: 02/06. --12:05 Sheriff Eastman R.N. Weight: 133.8 kg stated. Height/Length: 62 inches Per Patient. BMI: 54. --12:06 Sheriff Eastman R.N. Medications BuPROPion HCl ER (XL) Oral. Levothyronin . Levothyroxine Sodium Oral (Tablet 100 mcg) 1/2 tablet. --11:59 Sheriff Eastman R.N. Tamsulosin HCl Oral 0.4 mg, daily. --12:00 Sheriff Eastman R.N. Liothyronine Sodium Oral (Tablet 5 mcg) 1 tablet. --12:01 Sheriff Eastman R.N. Hydrocodone-Acetaminophen Oral (Tablet 5-325 mg), as needed. --12:02 Sheriff Eastman R.N. Liothyronine Sodium Oral (Tablet 50 mcg) 2 tablets. --12:02 Sheriff Eastman R.N. Ondansetron Oral 4 mg, daily. --12:03 Sheriff Eastman R.N. Allergies No Known Drug Allergy. --11:59 Sheriff Eastman R.N. History This started last night. ( Took vicodin did not help.). SOCIAL HX: Light tobacco smoker- less than 1/2 a pack per day. History of drug use: marijuana. No alcohol use. FALL RISK ASSESSMENT: Fall risk assessment completed. No fall risk identified. NUTRITIONAL RISK ASSESSMENT: The nutritional risk assessment revealed no deficiencies. FUNCTIONAL ASSESSMENT: Functional assessment: no impairments noted. LEARNING NEEDS ASSESSMENT: The learning needs assessment revealed no barriers. SKIN INTEGRITY ASSESSMENT: Skin integrity risk assessment completed. No skin integrity risk identified. --12:05 Sheriff Eastman R.N. PROBLEMS: Ureterolithiasis. Thyroid Disease. --12:04 Sheriff Eastman R.N. Interventions ID band on patient. To room. --12: Sheriff Eastman R.N. PHYSICAL ASSESSMENT Ambulatory to room. GENERAL / NEURO / PSYCH: Alert. Oriented X 4. HEENT: Mucous membranes are pink. RESPIRATORY: Respirations not labored. CVS: Capillary refill less than 2 seconds. SKIN: Skin is warm and dry. --12: Sheriff Eastman R.N. NURSING PROGRESS NOTES Head of bed elevated. Two patient identifiers checked. Call light placed in reach. Side rails up x 2. Bed placed in lowest position. Brakes of bed on. Patient ready for evaluation- chart flagged. --12: Sheriff Eastman R.N. 12:25 09/16/2016 Site #1 started via IV in the left antecubital space with an 20g angiocath, with aseptic technique and good blood return; one attempt. Blood drawn: rainbow set. Labeled in the presence of the patient. Saline lock flushed with 10 mL saline. --12: Sheriff Eastman R.N. 12:09/16/2016 Started bag #1 1000 mL IV Fluids IV NS (Saline); at 999 mL/hr over 1 hour(s) via site #1. Allergies verified and confirmed 5 rights. IV patency established site checked: no pain, redness, or swelling flushed thoroughly pre- and post-medication administration. --12: Sheriff Eastman R.N. 13:26 09/16/2016 Toradol IVP 30 mg given over 1 minute(s) via site #1. Allergies verified and confirmed 5 rights. IV patency established site checked: no pain, redness, or swelling flushed thoroughly pre- and post-medication administration. IVP given by RN. --13: Sheriff Eastman R.N. 13:09/16/2016 Morphine IVP 8 mg given over 2 minute(s) via site #1. Allergies verified, confirmed 5 rights and sedative warning given to the patient. IV patency established site checked: no pain, redness, or swelling flushed thoroughly pre- and post-medication administration. IVP given by RN. --13: Sheriff Eastman R.N. 13:30 09/16/2016 Started bag #1 1000 mL IV Fluids IV NS (Saline); at 999 mL/hr over 1 hour(s) via site #1. Allergies verified and confirmed 5 rights. IV patency established site checked: no pain, redness, or swelling flushed thoroughly pre- and post-medication administration. --13: Sheriff Eastman R.N. 13:09/16/2016 IV Fluids IV NS Discontinued: bag #1 infused. Total amount infused: 1000 mL. IV patency established IV site checked: no pain, redness, or swelling IV flushed thoroughly. --13:31 Sheriff Eastman R.N. 14:09/16/16. Patient and family informed about reason for wait and about plan of care. --14:06 Octavio Marcus R.N. 14:09/16/16. BP: 94/53 (large adult cuff) taken on the left arm, while lying. HR: 62. RR: 18. O2 saturation: 98% on room air. Pain level now: 09/06. --14:07 Octavio Marcus R.N. 14:07 09/16/16. --14:07 Octavio Marcus R.N. 14:09/16/16. Pulse oximeter and NIBP monitor placed on patient; monitor alarms on. --14:08 Octavio Marcus R.N. 15:29 09/16/2016 Morphine IVP 4 mg given over 1 minute(s) via site #1. Allergies verified, confirmed 5 rights and sedative warning given to the patient. IV patency established site checked: no pain, redness, or swelling flushed thoroughly pre- and post-medication administration. IVP given by RN. --15:29 Sheriff Eastman R.N. 15:29 09/16/2016 IV Fluids IV NS Discontinued: bag #2. Total amount infused: 1000 mL. IV patency established IV site checked: no pain, redness, or swelling IV flushed thoroughly. --15:29 Sheriff Eastman R.N. DISPOSITION / DISCHARGE Condition at departure: stable. No learning barriers present. Discharge instructions provided and reviewed with the patient. Reviewed medication(s) side effects, precautions, dosing and course information. Prescription(s) given to the parent. Patient verbalized understanding. Written instructions provided in Hungarian. The patient was discharged home and accompanied by family. She left the Emergency Department ambulatory and via private vehicle. Family member driving. --16:28 Sheriff Eastman R.N. 16:27 09/16/16. BP: 101/60. HR: 61. RR: 18. O2 saturation: 96%. Temp: 97.8 F. Pain level now: 08/09. --16:28 Sheriff Eastman R.N. Locked/Released at 09/16/2016 16:29 by Sheriff Eastman R.N.
--- NOTE | 2016-09-16 15:37 | ED CLINICAL REPORT ---
Clinical Report - Physicians/Mid Levels Formerly [facility] [address] [place] [address] 09/16/2016 11:46 Patient: SID SAAB Time Seen: 1200. Arrived- By private vehicle. Historian- patient. HISTORY OF PRESENT ILLNESS Chief Complaint: FLANK PAIN. At its maximum, severity described as moderate. Modifying factors- worsened by movement. Not relieved by anything. This started yesterday and is still present and worsening. It was abrupt in onset and has been intermittent but is not gone now. It is described as sharp. No radiation. It is described as located in the left flank. The patient has had nausea. No loss of appetite, vomiting or diarrhea. No additional abdominal pain. No recent travel. Similar symptoms previously: Once. Recent medical care: The patient was seen recently in the emergency department (recently diagnosed with renal colic 5 days ago). REVIEW OF SYSTEMS No black stools, hematemesis, bloody stools, fever or chest pain. No difficulty breathing or skin rash. All systems otherwise negative, except as recorded above. PAST HISTORY See nurses notes. Medications: Ondansetron Oral 4 mg, daily. Liothyronine Sodium Oral (Tablet 50 mcg) 2 tablets. Hydrocodone-Acetaminophen Oral (Tablet 5-325 mg), as needed. Liothyronine Sodium Oral (Tablet 5 mcg) 1 tablet. Tamsulosin HCl Oral 0.4 mg, daily. BuPROPion HCl ER (XL) Oral. Levothyronin . Levothyroxine Sodium Oral (Tablet 100 mcg) 1/2 tablet. Allergies: No Known Drug Allergy. SOCIAL HISTORY Never smoker. No alcohol use or drug use. No recent travel. Is a local resident. FAMILY HISTORY Negative. ADDITIONAL NOTES The nursing notes have been reviewed. PHYSICAL EXAM Vital Signs: 09/16/2016 11:58 BP: 140/64. HR: 82. RR: 18. O2 saturation: 98%. Temp: 97.7 F. Pain level now: 8/10. Oxygen saturation normal. Appearance: Alert. Oriented X3. No acute distress. CVS: Normal heart rate and rhythm. Heart sounds normal. Pulses normal. Respiratory: No respiratory distress. Breath sounds normal. Chest nontender. Abdomen: Soft and nontender. Bowel sounds normal. Back: Normal inspection. No CVA tenderness. Skin: Skin warm and dry. Normal skin color. No rash. Normal skin turgor. Extremities: Extremities exhibit normal ROM. No lower extremity edema. LABS, X-RAYS, AND EKG Laboratory Tests: UA-Culture if indicated: (RICHARD: 09/16/2016 13:20) ( [facility] 09/16/2016 13:40) Final results Test Result Flag Units (Reference) URINE COLOR YELLOW URINE APPEARANCE SL CLOUDY URINE GLUCOSE NEGATIVE (NEGATIVE) URINE BILIRUBIN NEGATIVE (NEGATIVE) URINE KETONE NEGATIVE (NEGATIVE) URINE SPECIFIC GRAVITY >= 1.030 (1.010-1.030) URINE PH 6.0 (5.0-8.0) URINE PROTEIN NEGATIVE (NEGATIVE) URINE UROBILINOGEN 0.2 EU/dL (0.2-1.0) URINE NITRITE NEGATIVE (NEGATIVE) URINE BLOOD 3+ (NEGATIVE) URINE LEUK ESTERASE NEGATIVE (NEGATIVE) URINE RBC 25-50 rbc/hpf (0-1) URINE WBC 3-5 wbc/hpf (0-1) URINE EPITHELIAL CELLS >15 EPI/hpf (0-5) URINE BACTERIA FEW (1+) (NONE SEEN) URINE COMMENT CULT NOT INDICATED URINE CULTURES ARE SET-UP BASED ON THE FOLLOWING CRITERIA:POSITIVE NITRITEPOSITIVE LEUKOCYTE ESTERASEGREATER THAN 10 WHITE BLOOD CELLSMODERATE (2+) OR GREATER BACTERIA CBC w Diff: (RICHARD: 09/16/2016 12:20) ( [facility] 09/16/2016 12:34) Final results Test Result Flag Units (Reference) WHITE BLOOD COUNT 9.1 K/uL (4.5-11.5) RED BLOOD COUNT 4.34 M/uL (4.00-5.20) HEMOGLOBIN 12.4 gm/dL (12.0-16.0) HEMATOCRIT 37.0 % (36.0-46.0) MEAN CELL VOLUME 85 fL (80-100) MEAN CORPUSCULAR HGB 28 pg (26-34) MEAN CORPUSCULAR HGB CONC 33 g/dL (31-37) RED CELL DISTRIBUTION WIDTH 14.0 % (11.6-14.8) PLATELET COUNT 261 K/uL (150-400) NEUTROPHIL % 74.8 % (50-75) LYMPH % 15.0 L % (25-40) MONO % 8.5 % (3-14) EOSINOPHIL % 1.4 % (0-4) BASOPHIL % 0.3 % (0-2) CMP: (RICHARD: 09/16/2016 12:20) ( MsgRcvd 09/16/2016 13:33) Final results Test Result Flag Units (Reference) GLUCOSE 93 mg/dL (70-110) BUN 21 H mg/dL (7-18) CREATININE 1.3 mg/dL (0.6-1.3) Estimated GFR 50.78 mL/min Estimated GFR- >60 mL/min Note: Persistent reduction over 3 months in eGFR<60 mL/min/1.73 m2 defines CKD. Patients with eGFR values>=60 mL/min/1.73 m2 may also have CKD if evidence ofpersistent proteinuria. Additional information may be foundat [email or web address]. SODIUM 140 mmol/L (136-145) POTASSIUM 3.8 mmol/L (3.5-5.1) CHLORIDE 104 mmol/L (98-107) CARBON DIOXIDE 26 mmol/L (21-32) CALCIUM 8.5 mg/dL (8.5-10.1) TOTAL PROTEIN 7.3 g/dL (6.4-8.2) ALBUMIN 3.4 g/dL (3.3-5.0) BILIRUBIN, TOTAL 0.3 mg/dL (0.0-1.0) ALKALINE PHOSPHATASE 63 U/L (46-116) AST (SGOT) 14 L U/L (15-37) ALT (SGPT) 16 U/L (12-78) LIPASE 83 U/L (73-393) BETA HCG, QUANTITATIVE <1 mIU/mL REFERENCE RANGE:Adult Males: <2 mIU/mLNon- Females: <6 mIU/mL Females:Approximate Approximate hCGGestational Age Range (mIU/mL) 0-1 week 0-501-2 weeks 40-3002-3 weeks 100-11045-5 weeks 500-49589-0 months 5,000-200,0002-3 months 10,000-100,0002nd trimester 3,000-50,0003rd trimester 1,000-50,000 . PROGRESS AND PROCEDURES Course of Care: The patient is a pleasant 31-year-old female presenting for evaluation of left-sided flank pain. Patient reports that she was seen here recently. Patient reports obtaining a CT scan of the abdomen and pelvis in stating that she was told she had kidney stones. Patient states that she did have some relief of her symptoms however they have returned. Please see the CT scan results noted below. PROCEDURE: CT ABDOMEN/PELVIS W/O CONTRAST INDICATION: FLANK PAIN TECHNIQUE: Axial CT images were obtained through the abdomen and pelvis without IV contrast. Coronal and sagittal reformations were created. COMPARISON: None. FINDINGS: Three tiny nonobstructing intrarenal stones in the upper pole of the left kidney. The largest measures 3 mm. There are two obstructing calculi clumped together in the proximal left ureter causing moderate left hydronephrosis measuring four and 2.5 mm. Mild rosette ureteric inflammation. Clear lung bases. Normal size heart. No hiatal hernia. The unenhanced appearance of the liver, gallbladder, adrenal glands, kidneys, pancreas and spleen is normal. The abdominal aorta is normal in its course and caliber. There are no suspicious calcifications, retroperitoneal adenopathy or masses. The stomach, upper bowel loops, and mesentery appears normal. Intact anterior abdominal wall. No free fluid, or inflammation. The unenhanced appearance of the uterus, ovaries, urinary bladder, pelvic vessels, and pelvic bowel loops is normal. Normal appendix. No suspicious calcifications, free fluid, or mass. Intact osseous structures. IMPRESSION: 1. Two obstructing calculi, both in the proximal left ureter, the larger measuring 4 mm. This results in moderate left hydronephrosis. 2. Three nonobstructing left upper pole intrarenal calculi. Because of the CT scan results, do not feelthe patient needs a repeat CT scan of the abdomen and pelvis. Wouldtry to refrain from exposing patient to excessive radiation. We'll attempt for paincontrol here in the emergency department. We'll repeat laboratory studies andobtain information onany potential urinary tract infection that could've appeared from the time she was discharged toenailas well as any potential kidney injury. Fluids as well as pain medication of been provided. Patient is agreeable to the treatment and plan. Workup is significant for elevation in bloodwith urinalysis. No other acute findings noted. Patient is a good chance of passing the stonespontaneously. Pain was controlled here in the emergency department. Patient reports feeling much better. Had long discussion patient in regards to her workup here in the emergency department as well as her diagnosis, home care, follow-up, and return precautions. All questions have been answered. The patient expressed understanding of these instructions and was agreeable to them. CLINICAL IMPRESSION Left renal colic in the right ureter (acute). INSTRUCTIONS Warnings: GENERAL WARNINGS: Return or contact your physician immediately if your condition worsens or changes unexpectedly, if not improving as expected, or if other problems arise. SPECIFICALLY, return if you develop pain in the abdomen, fever, vomiting, the inability to keep fluids down, blood in vomitus, blood in diarrhea, fainting or lightheadedness. Your Current Medications: CONTINUE TAKING THE FOLLOWING MEDICATIONS: BuPROPion HCl ER (XL) Oral. Hydrocodone-Acetaminophen Oral : Tablet 5-325 mg, prn. Levothyronin *. Levothyroxine Sodium Oral : Tablet 100 mcg, 1/2 tablet. Liothyronine Sodium Oral : Tablet 50 mcg, 2 tablets. Liothyronine Sodium Oral : Tablet 5 mcg, 1 tablet. Ondansetron Oral : 4 mg daily. Tamsulosin HCl Oral : 0.4 mg daily. Prescription Medications: Zofran (orally disintegrating tablets) 4 mg: take 1 orally every 8 hours as needed for nausea and vomiting. Dispense ten (10). No refill. Substitution is permissible. Percocet 5 mg/325 mg: take 1 tablet orally every 6 hours as needed for pain. Dispense twenty (20). No refill. Substitution is permissible. Follow-up: Return to the emergency department as needed. Follow up with your doctor in three days. Reason for referral: recheck today's concerns. Summary of care provided to patient via paper. Screening today revealed the patient's blood pressure to be in the normal range. The patient should follow up with a primary care provider for blood pressure management. Understanding of the discharge instructions verbalized by patient. (Electronically signed by Keyshawn Vasquez Dr. 09/22/2016 8:51)
--- NOTE | 2016-09-16 15:37 | ED ORDER SUMMARY ---
..... Patient: SID SAAB OrderSheet [facility] VisitID: [id number] [place] [address] 31y, F Registration Date/Time: 09/16/2016 ORDER SHEET Weight: 133.8 kg (stated) Allergies: No Known Drug Allergy GENERAL ORDERS: UA-Culture if indicated Urgent (12:09/16/2016 Marilyn Chase) (Ack 12:09 LNations ER Tech1) CMP Urgent (12:09/16/2016 Marilyn Chase) (Ack 12:09 LNations ER Tech1) CBC w Diff Urgent (12:09/16/2016 Marilyn Chase) (Ack 12:10 LNations ER Tech1) Lipase Urgent (12:09/16/2016 Marilyn Chase) (Ack 12:10 LNations ER Tech1) Serum Quantitative Urgent (12:09/16/2016 Marilyn Chase) (Ack 12:10 LNations ER Tech1) Pulse oximeter (12:09/16/2016 Marilyn Chase) (Ack 12:09 LNations ER Tech1) (12:27 SSambou R.N.) MEDICATION ORDERS: IV FLUIDS: IV NS : initial bolus 1000 mL (1000 mL/hr), then none - for X1 (NOW) (12:08 09/16/2016 Marilyn Chase) (12:26 SSambou R.N.) Toradol IV 30 mg (NOW) (13:09/16/2016 Marilyn Chase) (13:26 SSambou R.N.) Morphine IV 8 mg (HIGH ALERT MEDICATION, NOW) (13:11 09/16/2016 Marilyn Chase) (13:26 SSambou R.N.) IV NS : initial bolus 1000 mL (1000 mL/hr), then none - for X1 (NOW) (13:12 09/16/2016 Marilyn Chase) (13:30 Yangmbou R.N.) Morphine IV 4 mg (HIGH ALERT MEDICATION, NOW) (15:07 09/16/2016 Marilyn Chase) (15:29 SSambou R.N.) ORDER SHEET NOTES: [Electronically signed by Sheriff Wendy Eastman (16:09/16/2016)] [Electronically signed by Keyshawn Vasquez Dr. (08:51 09/22/2016)] [Electronically locked/signed by Sheriff Wendy Eastman (:09/16/2016)]
--- NOTE | 2016-09-22 08:51 | ED DISCHARGE INSTRUCTIONS ---
Patient: SID SAAB General Instructions [facility] VisitID: [id number] [place] [address] 31y, F Registration Date/Time: 09/16/2016 Left renal colic in the right ureter (acute). INSTRUCTIONS Warnings: GENERAL WARNINGS: Return or contact your physician immediately if your condition worsens or changes unexpectedly, if not improving as expected, or if other problems arise. SPECIFICALLY, return if you develop pain in the abdomen, fever, vomiting, the inability to keep fluids down, blood in vomitus, blood in diarrhea, fainting or lightheadedness. Your Current Medications: CONTINUE TAKING THE FOLLOWING MEDICATIONS: BuPROPion HCl ER (XL) Oral. Hydrocodone-Acetaminophen Oral : Tablet 5-325 mg, prn. Levothyronin *. Levothyroxine Sodium Oral : Tablet 100 mcg, 1/2 tablet. Liothyronine Sodium Oral : Tablet 50 mcg, 2 tablets. Liothyronine Sodium Oral : Tablet 5 mcg, 1 tablet. Ondansetron Oral : 4 mg daily. Tamsulosin HCl Oral : 0.4 mg daily. Prescription Medications: Zofran (orally disintegrating tablets) 4 mg: take 1 orally every 8 hours as needed for nausea and vomiting. Dispense ten (10). No refill. Substitution is permissible. Percocet 5 mg/325 mg: take 1 tablet orally every 6 hours as needed for pain. Dispense twenty (20). No refill. Substitution is permissible. Follow-up: Return to the emergency department as needed. Follow up with your doctor in three days. Reason for referral: recheck today's concerns. Summary of care provided to patient via paper. Screening today revealed the patient's blood pressure to be in the normal range. The patient should follow up with a primary care provider for blood pressure management. Understanding of the discharge instructions verbalized by patient. ADDITIONAL INFORMATION Kidney Stone (W/ Colic) The sharp cramping pain and nausea/vomiting that you have is due to a small stone which has formed in the kidney and is now passing down a narrow tube (ureter) on its way to your bladder. Once it reaches your bladder, the pain will stop. The stone may pass in your urine stream in one piece. [The size may be 1/16" to 1/4" (1-6mm)]. Or, the stone may also break up into ricardo fragments which you may not even notice. Once you have had a kidney stone, you are at risk for developing another one in the future. Home Care: Drink plenty of fluids (at least 8 to 10 glasses of water a day). Most stones will pass on their own, but may take from a few hours to a few days. Sometimes the stone is too large to pass by itself and special methods will have to be used to remove the stone. Each time you urinate, do so in a jar. Pour the urine from the jar through the strainer and into the toilet. Continue doing this until 24 hours after your pain stops. By then, if there was a kidney stone, it should pass from your bladder. Some stones dissolve into sand-like particles and pass right through the strainer. In that case, you wont ever see a stone. Save any stone that you find in the strainer and bring it to your doctor for analysis. It may be possible to prevent certain types of stones from forming. Therefore, it is important to know what kind of stone you have. Try to stay as active as possible since this will help the stone pass. Do not stay in bed unless your pain prevents you from getting up. You may notice a red, pink or brown color to your urine. This is normal while passing a kidney stone. Follow Up with your doctor or return to this facility if the pain lasts more than 48 hours. Get Prompt Medical Attention if any of the following occur: Pain that is not controlled by the medicine given Repeated vomiting or unable to keep down fluids Weakness, dizziness or fainting Fever of 100.4F (38C) or higher, or as directed by your healthcare provider Passage of solid red or brown urine (can't see through it) or urine with lots of blood clots Unable to pass urine for 8 hours and increasing bladder pressure Blood In The Urine Blood in the urine ("hematuria") has many possible causes. If it occurs after an injury (such as a car accident or fall), it is most often a sign of bruising to the kidney or bladder. Common medical causes of blood in the urine include urinary tract infection, kidney stone, inflammation, tumors, or certain other diseases of the kidney or bladder. Menstruation can cause blood to appear in the urine sample, although it is not coming from the urinary tract. If only a trace amount of blood is present, it will show up on the urine test, even though the urine may be yellow and not pink or red. This may occur with any of the above conditions, as well as heavy exercise or high fever. In this case, your doctor may want to repeat the urine test on another day. This will show if the blood is still present. If so, then other tests can be done to find out the cause. Home Care: If your urine does not appear bloody (pink, brown or red) then you do not need to restrict your activity in any way. If you can see blood in your urine, rest and avoid heavy exertion until your next exam. Do not use aspirin or anti-inflammatory medicine like ibuprofen (Motrin, Advil) or naproxen (Naprosyn, Aleve). These thin the blood and may increase bleeding. Follow Up with your doctor or as advised by our staff. If you were injured and had blood in your urine, you should have a repeat urine test in 1-2 days. Contact your doctor or return to this facility for this test. [NOTE: A radiologist will review any X-rays that were taken. We will notify you of any new findings that may affect your care.] Get Prompt Medical Attention if any of the following occur: Bright red blood or blood clots in the urine (if a new symptom) Weakness, dizziness or fainting New groin, abdominal or back pain Fever of 100.4F (38C) or higher, or as directed by your healthcare provider Repeated vomiting Bleeding from nose, gums or easy bruising Ondansetron Oral disintegrating tablet What is this medicine? ONDANSETRON (on CARLOS se wojciech) is used to treat nausea and vomiting caused by chemotherapy. It is also used to prevent or treat nausea and vomiting after surgery. How should I use this medicine? These tablets are made to dissolve in the mouth. Do not try to push the tablet through the foil backing. With dry hands, peel away the foil backing and gently remove the tablet. Place the tablet in the mouth and allow it to dissolve, then swallow. While you may take these tablets with water, it is not necessary to do so. Talk to your fisheries technician regarding the use of this medicine in children. Special care may be needed. What side effects may I notice from receiving this medicine? Side effects that you should report to your doctor or health neonatal intensive care nurse as soon as possible: allergic reactions like skin rash, itching or hives, swelling of the face, lips, or tongue breathing problems dizziness fast or irregular heartbeat feeling faint or lightheaded, falls fever and chills swelling of the hands and feet tightness in the chest Side effects that usually do not require medical attention (report to your doctor or health neonatal intensive care nurse if they continue or are bothersome): constipation or diarrhea headache What may interact with this medicine? Do not take this medicine with any of the following medications: -apomorphine -cisapride -dofetilide -dronedarone -pimozide -thioridazine -ziprasidone This medicine may also interact with the following medications: -carbamazepine -phenytoin -rifampicin -tramadol -other medicines that prolong the QT interval (cause an abnormal heart rhythm) What if I miss a dose? If you miss a dose, take it as soon as you can. If it is almost time for your next dose, take only that dose. Do not take double or extra doses. Where should I keep my medicine? Keep out of the reach of children. Store between 2 and 30 degrees C (36 and 86 degrees F). Throw away any unused medicine after the expiration date. What should I tell my health care provider before I take this medicine? They need to know if you have any of these conditions: heart disease history of irregular heartbeat liver disease low levels of magnesium or potassium in the blood an unusual or allergic reaction to ondansetron, granisetron, other medicines, foods, dyes, or preservatives or trying to get breast-feeding What should I watch for while using this medicine? Check with your doctor or health neonatal intensive care nurse as soon as you can if you have any sign of an allergic reaction. Oxycodone Hydrochloride, Acetaminophen Oral tablet What is this medicine? ACETAMINOPHEN; OXYCODONE (a set a PAPA jean carlos fen; ox i KOE done) is a pain reliever. It is used to treat mild to moderate pain. How should I use this medicine? Take this medicine by mouth with a full glass of water. Follow the directions on the prescription label. Take your medicine at regular intervals. Do not take your medicine more often than directed. Talk to your fisheries technician regarding the use of this medicine in children. Special care may be needed. Patients over 65 years old may have a stronger reaction and need a smaller dose. What side effects may I notice from receiving this medicine? Side effects that you should report to your doctor or health neonatal intensive care nurse as soon as possible: allergic reactions like skin rash, itching or hives, swelling of the face, lips, or tongue breathing difficulties, wheezing confusion light headedness or fainting spells severe stomach pain yellowing of the skin or the whites of the eyes Side effects that usually do not require medical attention (report to your doctor or health neonatal intensive care nurse if they continue or are bothersome): dizziness drowsiness nausea vomiting What may interact with this medicine? alcohol antihistamines barbiturates like amobarbital, butalbital, butabarbital, methohexital, pentobarbital, phenobarbital, thiopental, and secobarbital benztropine drugs for bladder problems like solifenacin, trospium, oxybutynin, tolterodine, hyoscyamine, and methscopolamine drugs for breathing problems like ipratropium and tiotropium drugs for certain stomach or intestine problems like propantheline, homatropine methylbromide, glycopyrrolate, atropine, belladonna, and dicyclomine general anesthetics like etomidate, ketamine, nitrous oxide, propofol, desflurane, enflurane, halothane, isoflurane, and sevoflurane medicines for depression, anxiety, or psychotic disturbances medicines for sleep muscle relaxants naltrexone narcotic medicines (opiates) for pain phenothiazines like perphenazine, thioridazine, chlorpromazine, mesoridazine, fluphenazine, prochlorperazine, promazine, and trifluoperazine scopolamine tramadol trihexyphenidyl What if I miss a dose? If you miss a dose, take it as soon as you can. If it is almost time for your next dose, take only that dose. Do not take double or extra doses. Where should I keep my medicine? Keep out of the reach of children. This medicine can be abused. Keep your medicine in a safe place to protect it from theft. Do not share this medicine with anyone. Selling or giving away this medicine is dangerous and against the law. Store at room temperature between 20 and 25 degrees C (68 and 77 degrees F). Keep container tightly closed. Protect from light. This medicine may cause accidental overdose and if it is taken by other adults, children, or pets. Flush any unused medicine down the toilet to reduce the chance of harm. Do not use the medicine after the expiration date. What should I tell my health care provider before I take this medicine? They need to know if you have any of these conditions: brain tumor Crohn's disease, inflammatory bowel disease, or ulcerative colitis drink more than 3 alcohol containing drinks per day drug abuse or addiction head injury heart or circulation problems kidney disease or problems going to the bathroom liver disease lung disease, asthma, or breathing problems an unusual or allergic reaction to acetaminophen, oxycodone, other opioid analgesics, other medicines, foods, dyes, or preservatives or trying to get breast-feeding What should I watch for while using this medicine? Tell your doctor or health neonatal intensive care nurse if your pain does not go away, if it gets worse, or if you have new or a different type of pain. You may develop tolerance to the medicine. Tolerance means that you will need a higher dose of the medication for pain relief. Tolerance is normal and is expected if you take this medicine for a long time. Do not suddenly stop taking your medicine because you may develop a severe reaction. Your body becomes used to the medicine. This does NOT mean you are addicted. Addiction is a behavior related to getting and using a drug for a non-medical reason. If you have pain, you have a medical reason to take pain medicine. Your doctor will tell you how much medicine to take. If your doctor wants you to stop the medicine, the dose will be slowly lowered over time to avoid any side effects. You may get drowsy or dizzy. Do not drive, use machinery, or do anything that needs mental alertness until you know how this medicine affects you. Do not stand or sit up quickly, especially if you are an older patient. This reduces the risk of dizzy or fainting spells. Alcohol may interfere with the effect of this medicine. Avoid alcoholic drinks. There are different types of narcotic medicines (opiates) for pain. If you take more than one type at the same time, you may have more side effects. Give your health care provider a list of all medicines you use. Your doctor will tell you how much medicine to take. Do not take more medicine than directed. Call emergency for help if you have problems breathing. The medicine will cause constipation. Try to have a bowel movement at least every 2 to 3 days. If you do not have a bowel movement for 3 days, call your doctor or health neonatal intensive care nurse. Do not take Tylenol (acetaminophen) or medicines that have acetaminophen with this medicine. Too much acetaminophen can be very dangerous. Many nonprescription medicines contain acetaminophen. Always read the labels carefully to avoid taking more acetaminophen. You have been given the following additional information: Kidney Stone W/ Colic Hematuria Ondansetron Oral disintegrating tablet Oxycodone Hydrochloride, Acetaminophen Oral tablet (Electronically signed by Keyshawn Vasquez Dr. 09/22/2016 8:51)
--- NOTE | 2016-09-22 08:51 | ED MAR SUMMARY ---
..... Medication Administration Record [facility] [address] [place] [address] Patient: SID SAAB Visit ID: [id number] 31y, F Weight: 133.8 kg Height/Length: 62 in BMI: 54 ALLERGIES: No Known Drug Allergy Start 12:09/16/2016 Sheriff Eastman R.N., Stop 13:09/16/2016 Sheriff Eastman R.N. Medication Administered: IV NS (SALINE), Dose: IV Fluids over 1 hour(s), Rate: 999 mL/hr, Dispensed: 1000 mL bag, Site: #1 left AC. Medication Ordered: IV NS : initial bolus 1000 mL (1000 mL/hr), then none - for X1 (NOW). Given 13:09/16/2016 Sheriff Eastman R.N. Medication Administered: TORADOL [IVP], Dose: 30 mg IVP over 1 minute(s), Site: #1 left AC. Medication Ordered: Toradol IV 30 mg (NOW). Given 13:09/16/2016 Sheriff Eastman R.N. Medication Administered: MORPHINE [IVP], Dose: 8 mg IVP over 2 minute(s), Site: #1 left AC. Medication Ordered: Morphine IV 8 mg (HIGH ALERT MEDICATION, NOW). Start 13:09/16/2016 Sheriff Eastman R.N., Stop 15:09/16/2016 Sheriff Eastman R.N. Medication Administered: IV NS (SALINE), Dose: IV Fluids over 1 hour(s), Rate: 999 mL/hr, Dispensed: 1000 mL bag, Site: #1 left AC. Medication Ordered: IV NS : initial bolus 1000 mL (1000 mL/hr), then none - for X1 (NOW). Given 15:09/16/2016 Sheriff Eastman R.N. Medication Administered: MORPHINE [IVP], Dose: 4 mg IVP over 1 minute(s), Site: #1 left AC. Medication Ordered: Morphine IV 4 mg (HIGH ALERT MEDICATION, NOW).
--- NOTE | 2016-09-22 08:51 | ED MAR SUMMARY ---
..... Medication Administration Record [facility] [address] [place] [address] Patient: SID SAAB Visit ID: [id number] 31y, F Weight: 133.8 kg Height/Length: 62 in BMI: 54 ALLERGIES: No Known Drug Allergy Start 12:09/16/2016 Sheriff Eastman R.N., Stop 13:09/16/2016 Sheriff Eastman R.N. Medication Administered: IV NS (SALINE), Dose: IV Fluids over 1 hour(s), Rate: 999 mL/hr, Dispensed: 1000 mL bag, Site: #1 left AC. Medication Ordered: IV NS : initial bolus 1000 mL (1000 mL/hr), then none - for X1 (NOW). Given 13:09/16/2016 Sheriff Eastman R.N. Medication Administered: TORADOL [IVP], Dose: 30 mg IVP over 1 minute(s), Site: #1 left AC. Medication Ordered: Toradol IV 30 mg (NOW). Given 13:09/16/2016 Sheriff Eastman R.N. Medication Administered: MORPHINE [IVP], Dose: 8 mg IVP over 2 minute(s), Site: #1 left AC. Medication Ordered: Morphine IV 8 mg (HIGH ALERT MEDICATION, NOW). Start 13:09/16/2016 Sheriff Eastman R.N., Stop 15:09/16/2016 Sheriff Eastman R.N. Medication Administered: IV NS (SALINE), Dose: IV Fluids over 1 hour(s), Rate: 999 mL/hr, Dispensed: 1000 mL bag, Site: #1 left AC. Medication Ordered: IV NS : initial bolus 1000 mL (1000 mL/hr), then none - for X1 (NOW). Given 15:09/16/2016 Sheriff Eastman R.N. Medication Administered: MORPHINE [IVP], Dose: 4 mg IVP over 1 minute(s), Site: #1 left AC. Medication Ordered: Morphine IV 4 mg (HIGH ALERT MEDICATION, NOW).
--- NOTE | 2016-09-22 08:51 | ED MED RECONCILIATION SUMMARY ---
Patient: SID SAAB Medication Reconciliation Report [facility] VisitID: [id number] [place] [address] 31y, F Registration Date/Time: 09/16/2016 Weight: 133.8 kg Height/Length: 62 in. BMI: 54.0 ALLERGIES: No Known Drug Allergy The patient's Home Medications are listed below: CONTINUE TAKING THE FOLLOWING MEDICATIONS: BuPROPion HCl ER (XL) Oral Hydrocodone-Acetaminophen Oral (5-325 mg) Levothyronin Levothyroxine Sodium Oral (100 mcg) 1/2 tablet Liothyronine Sodium Oral (50 mcg) 2 tablets Liothyronine Sodium Oral (5 mcg) 1 tablet Ondansetron Oral 4 mg, daily Tamsulosin HCl Oral 0.4 mg, daily The source(s) of the original Home Medication information: Not obtained. The following Medications were given to the patient in the Emergency Department: IV NS IV Fluids bolus 0, then 999 mL/hr, administered: 09/16/2016 12:26:00 PM Toradol [IVP] IVP 30 mg, administered: 09/16/2016 1:26:00 PM Morphine [IVP] IVP 8 mg, administered: 09/16/2016 1:26:00 PM IV NS IV Fluids bolus 0, then 999 mL/hr, administered: 09/16/2016 1:30:00 PM Morphine [IVP] IVP 4 mg, administered: 09/16/2016 3:29:00 PM The following Medications were prescribed to the patient: Zofran (orally disintegrating tablets) 4 mg: take 1 orally every 8 hours as needed for nausea and vomiting. Dispense ten (10). No refill. Substitution is permissible. -- Keyshawn Vasquez Dr. Percocet 5 mg/325 mg: take 1 tablet orally every 6 hours as needed for pain. Dispense twenty (20). No refill. Substitution is permissible. -- Keyshawn Vasquez Dr.
--- NOTE | 2016-09-22 08:51 | ED MED RECONCILIATION SUMMARY ---
Patient: SID SAAB Medication Reconciliation Report [facility] VisitID: [id number] [place] [address] 31y, F Registration Date/Time: 09/16/2016 Weight: 133.8 kg Height/Length: 62 in. BMI: 54.0 ALLERGIES: No Known Drug Allergy The patient's Home Medications are listed below: CONTINUE TAKING THE FOLLOWING MEDICATIONS: BuPROPion HCl ER (XL) Oral Hydrocodone-Acetaminophen Oral (5-325 mg) Levothyronin Levothyroxine Sodium Oral (100 mcg) 1/2 tablet Liothyronine Sodium Oral (50 mcg) 2 tablets Liothyronine Sodium Oral (5 mcg) 1 tablet Ondansetron Oral 4 mg, daily Tamsulosin HCl Oral 0.4 mg, daily The source(s) of the original Home Medication information: Not obtained. The following Medications were given to the patient in the Emergency Department: IV NS IV Fluids bolus 0, then 999 mL/hr, administered: 09/16/2016 12:26:00 PM Toradol [IVP] IVP 30 mg, administered: 09/16/2016 1:26:00 PM Morphine [IVP] IVP 8 mg, administered: 09/16/2016 1:26:00 PM IV NS IV Fluids bolus 0, then 999 mL/hr, administered: 09/16/2016 1:30:00 PM Morphine [IVP] IVP 4 mg, administered: 09/16/2016 3:29:00 PM The following Medications were prescribed to the patient: Zofran (orally disintegrating tablets) 4 mg: take 1 orally every 8 hours as needed for nausea and vomiting. Dispense ten (10). No refill. Substitution is permissible. -- Keyshawn Vasquez Dr. Percocet 5 mg/325 mg: take 1 tablet orally every 6 hours as needed for pain. Dispense twenty (20). No refill. Substitution is permissible. -- Keyshawn Vasquez Dr.
== END 2016-09-16 14:25 | disposition home or self-care (01) ==
LOC: ED SRH 11:45
DX: N20.2 Calculus of kidney with calculus of ureter (principal); E07.9 Disorder of thyroid, unspecified
CPT/HCPCS: 90004; 90100; 90197; 92235; 95059